=== PATIENT | male | born 1980 | race Caucasian/White ===

== ENCOUNTER → 2018-01-11 17:48 | Outpatient (CLI) | payer BC, OTHER, SELFPAY ==
--- NOTE | 2018-01-11 17:51 | DI.RAD.S_ITS ---
PROCEDURE: XR CERVICAL SPINE 4V OR 5V INDICATIONS: Neck pain with right UE paresthesias TECHNIQUE: 5 views of the cervical spine acquired. COMPARISON: None. FINDINGS: Bones: No fractures or dislocations to the T1 level. Oblique images demonstrate no bony foraminal stenoses. Minimal narrowing of the disc space at C5-6. Soft tissues: No prevertebral soft tissue swelling. IMPRESSION: Minimal narrowing of the intervertebral disc space at C5-6, no significant foraminal stenosis seen. Followup by MR scanning may be warranted to assess for disc bulge or herniation. Dictated by: Casimiro Ames M.D. on 01/12/2018 at 8:43 Approved by: Casimiro Ames M.D. on 01/12/2018 at 8:44
--- NOTE | 2018-01-11 17:51 | DI.MRI.S_ITS ---
PROCEDURE: MR CERVICAL SPINE WO CON INDICATIONS: Right C7 Radiculopathy TECHNIQUE: Noncontrast sagittal T1 spin echo and T2 fast spin echo, sagittal STIR, foraminal oblique sagittal T2 fast spin echo, and axial gradient echo or T2 fast spin echo through the cervical spine. COMPARISON: None. FINDINGS: Image quality: Excellent. Alignment and Curvature: There is normal bony alignment. Bone Marrow: Marrow demonstrates normal overall signal. Spinal Cord: Visualized spinal cord has normal size and signal. No cerebellar tonsillar herniation. Paraspinous Soft Tissues: No paravertebral masses. Prevertebral soft tissues are normal in thickness. C2-C3: Normal appearance. C3-C4: Loss of disc signal. Minimal, diffuse disc bulge. No central stenosis. Mild bilateral neural foraminal narrowing secondary to disc disease. No neural impingement. C4-C5: Loss of disc signal. Mild, diffuse disc bulge. Mild narrowing the central canal secondary disc disease. Mild bilateral neural foraminal narrowing secondary to disc disease. No neural impingement. C5-C6: Loss of disc signal and height. Large left central disc extrusion. Extruded disc material abuts and flattens the anterior left aspect of the cervical spinal cord. Severe narrowing of the central canal secondary to extruded disc material. Mild bilateral uncovertebral joint hypertrophy. Moderate bilateral neural foraminal narrowing secondary to disc disease and uncovertebral joint hypertrophy. C6-C7: Loss of disc signal. Mild, diffuse disc bulge. Mild central canal secondary to disc disease. Mild bilateral neural foraminal narrowing secondary to disc disease. No neural impingement. C7-T1: Normal appearance. IMPRESSION: 1. Multilevel degenerative disc disease. 2. C5-C6 bilateral uncovertebral joint hypertrophy. 3. Large left central C5-C6 disc extrusion. Extruded disc material impinges on the cervical spinal cord causing mild deformity. 4. Severe C5-C6 Central canal narrowing. Mild C4-C5 and C6-C7 central canal narrowing. 5. Moderate bilateral C5-C6 neural foraminal narrowing. Mild bilateral C4-C5 and C6-C7 neural foraminal narrowing. Dictated by: Ibeth Nick MD, PhD on 01/12/2018 at 15:31 Approved by: Ibeth Nick MD, PhD on 01/12/2018 at 15:50
== END ==
PROVIDERS: Family Provider Family Medicine; Visit Provider Physical Medicine & Rehabilitation
DX: M54.12 Radiculopathy, cervical region (principal); M50.122 Cervical disc disorder at C5-C6 level with radiculopathy; M48.02 Spinal stenosis, cervical region
CPT/HCPCS: 72050; 72141

== ENCOUNTER → 2018-06-10 20:09 | Outpatient (CLI) | payer BC, OTHER, SELFPAY ==
--- NOTE | 2018-06-10 20:12 | DI.MRI.S_ITS ---
PROCEDURE: MR HEAD/BRAIN WO CON INDICATIONS: headaches TECHNIQUE: Noncontrast axial T1 spin echo, axial T2 fast spin echo, sagittal and axial FLAIR, coronal T2 fast spin echo, axial gradient echo, axial diffusion and ADC through the brain. COMPARISON: None. FINDINGS: Image quality: Excellent. CSF Spaces: Basal cisterns are patent. No extra-axial fluid collections. Ventricles are normal in size and shape. Brain: No intracranial masses or hemorrhage. Groves/white matter interface is normal. Brainstem appears normal. Diffusion-weighted images demonstrate no acute ischemic insult. No chronic ischemic insults. Normal intravascular flow voids are present. Skull and face: Calvarium has normal marrow signal. Orbits appear normal. Sinuses: Sinuses and mastoids are clear. IMPRESSION: Source of headaches is not seen. No evidence of mass or prior trauma. No vascular malformation seen. Dictated by: Casimiro Ames M.D. on 06/11/2018 at 8:09 Approved by: Casimiro Ames M.D. on 06/11/2018 at 8:10
== END ==
PROVIDERS: Family Provider Family Medicine; PCP Family Medicine; Visit Provider Family Medicine
DX: R51 Headache (principal)
CPT/HCPCS: 70551

== ENCOUNTER → 2018-06-14 15:41 | Outpatient (CLI) | payer BC, OTHER, SELFPAY | PROVIDERS: PCP Family Medicine; Visit Provider Family Medicine | DX: R53.83 Other fatigue (principal) | CPT/HCPCS: 36415; 84443 ==

== ENCOUNTER 2018-07-21 08:16 | Outpatient (CLI) | payer BC, OTHER, SELFPAY ==
[2018-07-21] VITALS (10 sets, daily range): BP systolic 107–122; BP diastolic 56–82; PULSE 71–86; RESP 16–18; TEMP 36.5; O2SAT 97–100
--- NOTE | 2018-07-21 08:19 | DI.RAD.S_ITS ---
PROCEDURE: PAIN C/T INTERLAMINAR INJECT INDICATIONS: CERVICAL DISC DISPLACEMENT FINDINGS: Fluoroscopic spot filming was performed to verify placement of spinal needles at the C6-C7 level(s), as labeled on the films. Appropriate location(s) of the needle tip(s) was confirmed by injection of iodinated contrast. Dictated by: Justus Fuchs M.D. on 07/22/2018 at 13:53 Approved by: Justus Fuchs M.D. on 07/22/2018 at 13:56
[2018-07-21] MEDS: MIDAZOLAM 5 MG/5 ML VIAL IV (09:05)
[2018-07-21] MEDS: IOPAMIDOL 15 ML VIAL 3 ML INJ (09:10)
[2018-07-21] MEDS: LIDOCAINE 1% 20 ML INJ 5 ML INJ (09:10)
[2018-07-21] MEDS: DEXAMETHASONE 10 MG/ML VIAL 20 MG INJ (09:11)
--- NOTE | 2018-07-21 09:17 | PM.PROC.1 ---
Procedures Date/Time Date of procedure: 07/21/18 Time of procedure: 09:17 General Procedure description: PREOP DIAGNOSIS 1. CERVICAL STENOSIS, 2. CERVICAL HNP WITH UPPER EXTREMITY RADICULAR FEATURES, POST OP DIAGNOSIS 1. CERVICAL STENOSIS, 2. CERVICAL HNP WITH UPPER EXTREMITY RADICULAR FEATURES, PROCEDURES 1. FLUORSCOPICALLY GUIDED CONTRAST CONTROLLED INTERLAMINAR EPIDURAL STEROID INJECTION - C6/7 TL MARIMAR PHYSICIAN: Karan Montgomery, DO INDICATIONS Yann is referred by Dr. Campo for treatment of Cervical HNP with Upper Extremity Paresthesias. FINDINGS Cervical Stenosis due to disc deterioration and nerve root irritation and nerve root irritation DESCRIPTION OF PROCEDURE Fluoroscopically guided, contrast-controlled C6/7 translaminar epidural steroid injection with conscious sedation. Following denial of allergy and review of potential side effects and complications, including, but not necessarily limited to, infection, allergic reaction, local tissue breakdown, temporary as well as permanent nerve injury, stroke, paralysis, and possible , the patient indicated that patient understood and agreed to proceed. An informed consent document was signed by the patient, witnessed by a nurse, and placed in the patient's chart. Additionally, other treatment options including modalities, medications, and physical therapy were reviewed with the patient. After review of previous anaesthesic history and IV conscious sedation the patient was deemed safe to proceed with todays procedure with IV conscious sedation as ASA class II designation. Safety time-out was performed to confirm patient ID, procedure to be performed and site of procedure. IV sedation was accomplished with a combination of 5mg of Versed administered by the RN after DO order, titrated to patient comfort during the course of the procedure while the patient remained responsive to all verbal commands. In the prone position, following sterile prep and drape of the cervical region, the C6/7 translaminar space was identified fluoroscopically. The skin was anesthetized via a 25-gauge 1.5-inch needle with 1% lidocaine solution. At this point, a 25-gauge, 2.5-inch short bevel spinal needle was atraumatically introduced and advanced under fluoroscopic guidance into epidural space at the C6/7 translaminar space. Depth was confirmed on lateral view. Radiological data, including multiple fluoroscopic views of the cervical spine, reveal a spinal needle at the C6/7 translaminar space. Lateral views then show placement of the needle in the epidural space. Subsequent views show contrast material flowing superiorly and inferiorly in the epidural space. DSA fluoroscopy with live contrast injection, once again, confirmed no vascular or intrathecal uptake. At this point, using loss of resistance technique with saline and air, the epidural space was entered. Following negative aspiration, injection of approximately 1.5 cc of Isovue-200 with live fluoroscopy in the AP view confirmed epidural flow in the epidural space without vascular or intrathecal uptake observed. Subsequently, a test dose of 1 cc of 1% lidocaine solution was injected and patient was observed for two minutes without signs or symptoms of complications, including abdominal pain, shortness of breath, bilateral upper or lower extremity weakness, nausea and vomiting, prior to steroid injection. At this point, 3 cc or 30 mg of dexamethasone was then injected without incident. The patient tolerated the procedure well without signs or symptoms of complications prior to being transferred to the recovery area for further monitoring, The patient was then transferred to the recovery area where they were observed for an appropriate period of time after the injection. The patient reported a VAS score of 6 prior to the procedure and a post-procedure VAS of 0. Total Fluoroscopy Time: 37.0 seconds Total Conscious Time: 24min POST OP INSTRUCTIONS The patient was provided a Pain Log to continue to record their response to the target-specific procedure prior to follow-up visit with the referring provider. Additionally, specific post-injection care instructions and a contact number to our office were provided if concerns arise regarding possible complications associated with the procedure are suspected. Karan Montgomery, Complications: none
--- NOTE | 2018-07-21 09:23 | PC.NURSE ---
at approx 1915 assisted pt from proc table and transported to post proc area in stable condition.
--- NOTE | 2018-07-21 09:24 | PC.NURSE ---
Received pt from Jacqueline NELSON post procedure, pt awake and able to move from w/c to chair for resumed monitoring.
== END 2018-07-21 09:44 | disposition home or self-care (01) ==
PROVIDERS: PCP Family Medicine; Visit Provider Physical Medicine & Rehabilitation
DX: M48.02 Spinal stenosis, cervical region (principal); M50.123 Cervical disc disorder at C6-C7 level with radiculopathy; M50.223 Other cervical disc displacement at C6-C7 level
CPT/HCPCS: 62321; 99152; J1040; J1100; J2250

== ENCOUNTER → 2018-08-06 07:47 | Outpatient (CLI) | payer BC, OTHER, SELFPAY ==
--- NOTE | 2018-08-06 07:48 | DI.MRI.S_ITS ---
PROCEDURE: MR LUMBAR SPINE WO CON INDICATIONS: LOW BACK PAIN TECHNIQUE: Noncontrast sagittal T1 spin echo and T2 fast echo, sagittal STIR, axial T1 and T2 fast spin echo through the lumbar spine. In cases with scoliosis, additional coronal T2 fast spin echo may be performed. COMPARISON: None. FINDINGS: Image quality: Excellent. Alignment and Curvature: There is normal bony alignment. Bone Marrow: Marrow is of normal overall signal. No acute vertebral body compression fractures. Spinal Cord: Conus medullaris terminates at the L1 level. Visualized cord demonstrates normal signal and size. Paraspinous Soft Tissues: No paravertebral masses. L1-L2: Normal appearance. L2-L3: Normal appearance. L3-L4: Normal appearance. L4-L5: Mild broad-based disc bulge and bilateral facet arthrosis is seen. No significant central canal stenosis. Mild bilateral neuroforaminal narrowing is seen. L5-S1: There is diffuse disc bulge and bilateral facet arthrosis with no significant central canal stenosis or neuroforaminal narrowing. IMPRESSION: 1. Mild degenerative disc bulge and bilateral facet arthrosis at L4-5 and L5-S1 levels. No significant central canal stenosis. Mild bilateral neuroforaminal narrowing is noted at L4-5 level. 2. No marrow edema. No compression fracture or spondylolisthesis. Dictated by: Serge Jaimes M.D. on 08/06/2018 at 8:36 Approved by: Serge Jaimes M.D. on 08/06/2018 at 8:39
== END ==
PROVIDERS: PCP Family Medicine; Visit Provider Physical Medicine & Rehabilitation
DX: M54.5 Low back pain (principal); M51.36 Other intervertebral disc degeneration, lumbar region; M51.37 Other intervertebral disc degeneration, lumbosacral region; M48.061 Spinal stenosis, lumbar region without neurogenic claudication
CPT/HCPCS: 72148

== ENCOUNTER 2018-09-01 14:44 | Outpatient (CLI) | payer BC, OTHER, SELFPAY ==
[2018-09-01] VITALS (9 sets, daily range): BP systolic 95–138; BP diastolic 58–99; PULSE 67–88; RESP 16–18; TEMP 36.3; O2SAT 97–100
--- NOTE | 2018-09-01 14:46 | DI.RAD.S_ITS ---
PROCEDURE: PAIN L/SI FACET INJ/BLK 1STL INDICATIONS: 34516, [id number] Bilateral L4/5, L5/S1 facet joint injection FINDINGS: Fluoroscopic spot filming was performed to verify placement of spinal needles at the bilateral L4-5 and L5-S1 facet region levels level(s), as labeled on the films. Appropriate location(s) of the needle tip(s) was confirmed by injection of iodinated contrast. IMPRESSION: Bilateral needle tip localization for epidural steroid injection adjacent to the expected course of the bilateral L4 and bilateral L5 nerve roots. Dictated by: Casimiro Ames M.D. on 09/01/2018 at 16:19 Approved by: Casimiro Ames M.D. on 09/01/2018 at 16:20
[2018-09-01] MEDS: MIDAZOLAM 5 MG/5 ML VIAL IV (15:20)
[2018-09-01] MEDS: fentaNYL 100 MCG/2 ML INJ IV (15:24)
[2018-09-01] MEDS: BUPIVACAINE 0.5% (PF) VIAL 2 ML INJ (15:29)
[2018-09-01] MEDS: BETAMETHASONE 30 MG/5 ML MDV 12 MG INJ (15:30)
[2018-09-01] MEDS: LIDOCAINE 1% 20 ML INJ 10 ML INJ (15:30)
[2018-09-01] MEDS: IOPAMIDOL 15 ML VIAL 3 ML INJ (15:30)
--- NOTE | 2018-09-01 15:32 | PC.NURSE ---
ASSISTING PT OFF TABLE AND TRANSPORTING TO POST PROC AREA IN STABLE CONDITION
--- NOTE | 2018-09-01 15:37 | P.PCN_ITS ---
Procedures Date/Time Date of procedure: 09/01/18 Time of procedure: 15:36 General Procedure description: PREOP DIAGNOSIS 1. FACET ARTHROPATHY 2. AXIAL LBP 3. MULTILEVEL DDD POST OP DIAGNOSIS 1. FACET ARTHROPATHY 2. AXIAL LBP 3. MULTILEVEL DDD PROCEDURES 1. FLUORSCOPICALLY GUIDED CONTRAST CONTROLLED FACET JOINT INJECTIONS BILATERAL L4/5, L5/S1 PHYSICIAN: Karan Montgomery, DO INDICATIONS Yann is referred by Dr. Campo for treatment of Axial LBP FINDINGS Multilevel Facet Arthropathy with Clinically significant axial LBP DESCRIPTION OF PROCEDURE Fluoroscopically guided, contrast-controlled bilateral L4/5, L5/S1 facet joint injections. Following denial of allergy and review of potential side effects and complications, including, but not necessarily limited to, infection, allergic reaction, local tissue breakdown, stroke, temporary or permanent nerve injury, paralysis, and possible , the patient indicated that the patient understood and agreed to proceed. An informed consent document was signed by the patient, witnessed by a nurse, and placed in the patient's chart. Additionally, other treatment options including medications, modalities, and physical therapy were reviewed with the patient. After review of previous anaesthesic history and IV conscious sedation the patient was deemed safe to proceed with todays procedure with IV conscious sedation as ASA class II designation. Safety time-out was performed to confirm patient ID, procedure to be performed and site of procedure. IV sedation was accomplished with a combination of 2mg of Versed and 50mcg of Fentanyl was administered by the RN after DO order, titrated to patient comfort during the course of the procedure while the patient remained responsive to all verbal commands In the prone position, following sterile prep and drape of the lumbar region, the posterior aspect of the L4/5, L5/S1 facet joints were identified fluoroscopically. The skin was anesthetized via a 25-gauge 1.5-inch needle with 1% lidocaine solution into the corresponding facet joints. At this point, a 22-gauge 3.5-inch spinal needle was atraumatically introduced and advanced under fluoroscopic guidance into the corresponding facet joints. Following negative aspiration, injections of approximately 0.2-cc of Isovue 200 confirmed interarticular placement without vascular uptake. The identical procedure was then performed at the L4/5, L5/S1 facet joints on the left. Radiological data, including multiple fluoroscopic views of the lumbosacral spine, reveal a spinal needle at the L4/5, L5/S1 facet joints bilaterally. Subsequent views show flow of contrast material both superiorly and inferiorly within the joint space without vascular or intrathecal uptake. At this point, a total of 0.5 cc including a mixture of 0.25cc Marcaine and 0.25cc betamethasone was injected without complication into each of the corresponding facet joints. The patient tolerated the procedure well without signs or symptoms of complications prior to transfer to the recovery area continued monitoring without incident. The patient was then transferred to the recovery area where they were observed for an appropriate period of time after the injection. The patient reported a VAS score of 7 prior to the procedure and a post- procedure VAS of 0. Total Fluoroscopy Time: 20.3 seconds Total Conscious Sedation Time: 24min POST OP INSTRUCTIONS The patient was provided a Pain Log to continue to record their response to the target-specific procedure prior to follow-up visit with their referring physician. Additionally, specific post-injection care instructions and a contact number to our office were provided if concerns arise regarding possible complications associated with the procedure are suspected. Karan Montgomery DO Complications: none
--- NOTE | 2018-09-01 16:05 | PC.NURSE ---
pt returned from procedure awake and alert, able to move from w/c to chair on own power with standby assist. Resumed monitoring from Jacqueline NELSON.
== END 2018-09-01 16:04 ==
LOC: RAD 14:45
PROVIDERS: PCP Family Medicine; Visit Provider Physical Medicine & Rehabilitation
DX: M47.817 Spondylosis without myelopathy or radiculopathy, lumbosacral region (principal); M47.816 Spondylosis without myelopathy or radiculopathy, lumbar region; M54.5 Low back pain; M51.36 Other intervertebral disc degeneration, lumbar region; M51.37 Other intervertebral disc degeneration, lumbosacral region
CPT/HCPCS: 64493; 64494; 99152; J0702; J2250; J3010

== ENCOUNTER 2018-10-05 14:46 | Outpatient (CLI) | payer BC, OTHER, SELFPAY ==
[2018-10-05] VITALS (8 sets, daily range): BP systolic 120–132; BP diastolic 72–98; PULSE 72–86; RESP 16–20; TEMP 36.7; O2SAT 96–100
--- NOTE | 2018-10-05 14:48 | DI.RAD.S_ITS ---
PROCEDURE: PAIN L/SI FACET INJ/BLK 1STL INDICATIONS: SPONDYLOSIS FINDINGS: Fluoroscopic spot filming was performed to verify placement of spinal needles at the L4, L5 and S1 level(s), as labeled on the films. Appropriate location(s) of the needle tip(s) was confirmed by injection of iodinated contrast. IMPRESSION: Fluoroscopy for pain management. Dictated by: Capri Lozoya M.D. on 10/06/2018 at 7:47 Approved by: Capri Lozoya M.D. on 10/06/2018 at 7:48
[2018-10-05] MEDS: MIDAZOLAM 5 MG/5 ML VIAL IV (15:21)
[2018-10-05] MEDS: fentaNYL 100 MCG/2 ML INJ IV (15:21)
[2018-10-05] MEDS: IOPAMIDOL 15 ML VIAL 3 ML INJ (15:28)
[2018-10-05] MEDS: BETAMETHASONE 30 MG/5 ML MDV 12 MG INJ (15:29)
[2018-10-05] MEDS: BUPIVACAINE 0.5% (PF) VIAL 2 ML INJ (15:29)
--- NOTE | 2018-10-05 15:31 | PC.NURSE ---
ASSISTING PT OFF TABLE AND TRANSPORTING TO POST PROC AREA IN STABLE CONDITION
--- NOTE | 2018-10-05 15:40 | PM.PROC.1 ---
Procedures Date/Time Date of procedure: 10/05/18 Time of procedure: 15:40 General Procedure description: POST OP DIAGNOSIS 1. FACET ARTHROPATHY PROCEDURES 1. Right L4, L5 and S1 MB BLOCKS PHYSICIAN: Karan Montgomery DO YASMEEN Lerner is referred by Dr. García for treatment of Right Axial LBP. DESCRIPTION OF PROCEDURE Fluoroscopically guided, contrast-controlled right L4, L5 and S1 medial branch blocks with 0.5cc of 0.5% Marcaine. Following denial of allergy and review of potential side effects and complications, including, but not necessarily limited to, infection, allergic reaction, local tissue breakdown, nerve injury, paralysis, stroke and possible , the patient indicated that the patient understood and agreed to proceed. An informed consent document was signed by the patient, witnessed by a nurse, and placed in the patient's chart. After review of previous anaesthesic history and IV conscious sedation the patient was deemed safe to proceed with todays procedure with IV conscious sedation as ASA class II designation. Safety time-out was performed to confirm patient ID, procedure to be performed and site of procedure. IV sedation was accomplished with a combination of 4mg of Versed and 50mcg of Fentanyl was administered by the RN after DO order, titrated to patient comfort during the course of the procedure while the patient remained responsive to all verbal commands In the prone position, following sterile prep and drape of the lumbar region, the right L4, L5 and S1 anatomical location of the medial branch of the dorsal ramus was identified fluoroscopically. Subsequently an anesthetic skin wheal using 1% lidocaine solution was initiated at each of the anatomical spots. Subsequently then a 22-gauge 3.5-inch spinal needle was atraumatically introduced and advanced under fluoroscopic guidance at each of the corresponding sites at the right L4, L5 and S1 MB. After negative aspiration, 0.2 cc of Isovue 200 was injected, confirming placement without vascular or intrathecal uptake. Subsequently then 0.5 cc of 0.5% Marcaine solution was injected at each of the corresponding sites at the right L4, L5 and S1 medial branch locations. The patient tolerated the procedure well without signs or symptoms of complications. The procedure tolerated the procedure well without signs or symptoms of complications prior to transfer to the recovery area continued monitoring without incident. Post-procedure, the patient was monitored initiating provocative activities to measure the amount of relief from block of the facetogenic pain. The patient reported a VAS of 7 prior to the procedure and a post-procedure VAS of 1. It has been a pleasure to assist in the diagnostic and therapeutic care of your patient. Total Fluoroscopy Time: 24.8 seconds Total Conscious Sedation Time: 24min POST OP INSTRUCTIONS The patient was provided with a Pain Log to complete over the next several hours and subsequent days prior to the patient's follow up with the ordering physician. If the patient has ore crushing dust collector relief to the solution applied, then they may be a candidate for medial branch rhizotomy. The patient is aware, was provided, once again, with a Pain Log and will follow up with the referring physician for review and clinical correlation Karan Montgomery DO Complications: none
--- NOTE | 2018-10-05 15:55 | PC.NURSE ---
pt returned from procedure at 1536 via wheelchair, pt awake and alert. Able to move from w/c to chair without difficulty. Resumed monitoring from Jacqueline NELSON.
--- NOTE | 2018-10-06 12:32 | PC.NURSE ---
FOLLOW UP CALL MADE, LEFT MSG WITH CLINIC NUMBER IN CASE OF QUESTIONS/CONCERNS.
== END 2018-10-05 16:02 ==
LOC: RAD 14:47
PROVIDERS: PCP Family Medicine; Visit Provider Physical Medicine & Rehabilitation
DX: M47.816 Spondylosis without myelopathy or radiculopathy, lumbar region (principal); M47.817 Spondylosis without myelopathy or radiculopathy, lumbosacral region
CPT/HCPCS: 64493; 64494; 99152; J0702; J2250; J3010

== ENCOUNTER → 2021-03-12 08:16 | Outpatient (CLI) | payer BC, OTHER, SELFPAY ==
[2021-03-12 12:27] LABS: COVID19 -Nasal RAPID Negative (Negative)
== END ==
PROVIDERS: PCP Family Medicine; Visit Provider Physical Medicine & Rehabilitation
DX: Z20.822 Contact with and (suspected) exposure to COVID-19 (principal)
CPT/HCPCS: 87635

== ENCOUNTER 2021-03-12 14:08 | Outpatient (CLI) | payer BC, OTHER, SELFPAY ==
[2021-03-12] VITALS (9 sets, daily range): BP systolic 110–148; BP diastolic 68–91; PULSE 70–85; RESP 12–20; TEMP 36.4; O2SAT 97–100
--- NOTE | 2021-03-12 14:10 | DI.RAD.S_ITS ---
PROCEDURE: PAIN L/S FACET INJ/BLK 1ST PHILLIP COMPARISON: [facility], , PAIN L/SI FACET INJ/BLK 1STL, 10/05/2018, 15:26. INDICATIONS: SPONDYLOSIS FINDINGS: Fluoroscopic spot filming was performed to verify placement of a spinal needles at the L4, L5, and S1 levels on both sides, as labeled on the films. Appropriate location of the needle tips was confirmed by injection of iodinated contrast. IMPRESSION: Intraprocedural examination within normal limits. Dictated by: Neal Hennessy M.D. on 03/12/2021 at 15:28 Approved by: Neal Hennessy M.D. on 03/12/2021 at 15:28
[2021-03-12] MEDS: MIDAZOLAM 5 MG/5 ML VIAL IV (14:39)
[2021-03-12] MEDS: fentaNYL 100 MCG/2 ML INJ 50 MCG IV (14:39)
[2021-03-12] MEDS: IOPAMIDOL 15 ML VIAL 3 ML INJ (14:45)
[2021-03-12] MEDS: BUPIVACAINE 0.5% (PF) VIAL 5 ML INJ (14:45)
[2021-03-12] MEDS: LIDOCAINE 1% 20 ML 10 ML INJ (14:45)
--- NOTE | 2021-03-12 14:56 | PM.PROC.IR.1 ---
Date/Time/Diagnoses Date of procedure: 03/12/21 Time of procedure: 14:56 Pre-procedure diagnosis: 1. FACET ARTHROPATHY Post-procedure diagnosis: same Procedure Notes Procedure: 1. BILATERAL- L4, L5 and S1 DIAGNOSTIC MB BLOCKS with LA Anesthetic Indications: Yann is referred by Dr. Campo for treatment of Bilateral Axial LBP. Physician: Karan Montgomery Total Fluoroscopy time (seconds): 14 Total sedation minutes: 12 Complications: none Procedure in detail & Post-procedure care: DESCRIPTION OF PROCEDURE Fluoroscopically guided, contrast-controlled bilateral L4, L5 and S1 medial branch blocks with 0.5cc of 0.5% Marcaine. Following review of allergy and review of potential side effects and complications, including, but not necessarily limited to, infection, allergic reaction, local tissue breakdown, nerve injury, paralysis, stroke and possible , the patient indicated that the patient understood and agreed to proceed. An informed consent document was signed by the patient, witnessed by a nurse, and placed in the patient's chart. After review of previous anaesthesic history and IV conscious sedation the patient was deemed safe to proceed with today's procedure with IV conscious sedation as ASA class II designation. Safety time-out was performed to confirm patient ID, procedure to be performed and site of procedure. IV sedation was accomplished with a combination of 4mg of Versed and 50mcg of Fentanyl was administered by the RN after DO order, titrated to patient comfort during the course of the procedure while the patient remained responsive to all verbal commands In the prone position, following sterile prep and drape of the lumbar region, the right L4, L5 and S1 anatomical location of the medial branch of the dorsal ramus was identified fluoroscopically. Subsequently an anesthetic skin wheal using 1% lidocaine solution was initiated at each of the anatomical spots. Subsequently then a 22-gauge 3.5-inch spinal needle was atraumatically introduced and advanced under fluoroscopic guidance at each of the corresponding sites at the right L4, L5 and S1 MB. After negative aspiration, 0.2cc of Isovue 200 was injected, confirming placement without vascular or intrathecal uptake. Subsequently then 0.5cc of 0.5% Marcaine solution was injected at each of the corresponding sites at the right L4, L5 and S1 medial branch locations. The identical procedure was replicated on the left. The patient tolerated the procedure well without signs or symptoms of complications prior to transfer to the recovery area continued monitoring without incident. Post-procedure, the patient was monitored initiating provocative activities to measure the amount of relief from block of the facetogenic pain. The patient reported a VAS of 7 prior to the procedure and a post-procedure VAS of 1. It has been a pleasure to assist in the diagnostic and therapeutic care of your patient. POST OP INSTRUCTIONS The patient was provided with a Pain Log to complete over the next several hours and subsequent days prior to the patient's follow up with the ordering physician. If the patient has wet press tender relief to the solution applied, then they may be a candidate for medial branch rhizotomy. The patient is aware, was provided, once again, with a Pain Log and will follow up with the referring physician for review and clinical correlation
== END 2021-03-12 15:20 | disposition home or self-care (01) ==
LOC: RAD 14:10
PROVIDERS: PCP Family Medicine; Referring Provider Physical Medicine & Rehabilitation; Visit Provider Physical Medicine & Rehabilitation
DX: M47.816 Spondylosis without myelopathy or radiculopathy, lumbar region (principal); M47.817 Spondylosis without myelopathy or radiculopathy, lumbosacral region; M54.5 Low back pain; Z20.822 Contact with and (suspected) exposure to COVID-19
CPT/HCPCS: 64493; 64494; 87635; 99152; C9803; J2250; J3010

== ENCOUNTER → 2022-04-21 14:31 | Outpatient (CLI) | payer BC, OTHER, SELFPAY ==
--- NOTE | 2022-04-21 14:33 | DI.RAD.S_ITS ---
PROCEDURE: XR CERVICAL SPINE 4V OR 5V INDICATIONS: NECK AND SHOULDER PAIN TECHNIQUE: 5 views of the cervical spine were acquired. COMPARISON: [facility], CR, XR CERVICAL SPINE 4V OR 5V, 01/11/2018, 17:52. FINDINGS: Bones: No fractures or dislocations to the T1 level. No suspicious bony lesions. Loss of lordosis which could be related to muscle spasm, rigidity or simply positional. Mild disc height loss with endplate sclerosis at the C5-C6, C6-C7 and C7-T1 levels. Mild multilevel mid and lower cervical spine facet joint arthropathy and uncovertebral hypertrophy. Oblique views demonstrate mild neural foraminal narrowing on the right at the C5-C6 and C6-C7 levels and on the left at the C4-C5, C5-C6 and C6-C7 levels. There is normal range of motion between flexion and extension, with preserved normal bony alignment. Soft tissues: Prevertebral soft tissues are normal in thickness. IMPRESSION: Loss of lordosis and multilevel cervical spine spondylosis. Dictated by: [facility] Interpreted: José Miguel Baron MD on 04/21/2022 at 16:15 Transcribed by: PANKAJ on 04/21/2022 at 16:18 Approved by: José Miguel Baron M.D. on 04/21/2022 at 22:55
--- NOTE | 2022-04-21 14:33 | DI.RAD.S_ITS ---
PROCEDURE: XR SHOULDER LT MIN 2V INDICATIONS: LEFT SHOULDER PAIN TECHNIQUE: 3 views of the shoulder were acquired. COMPARISON: None. FINDINGS: Bones: No fractures or dislocations. No suspicious bony lesions. Visualized ribs appear intact. Moderate acromioclavicular mild glenohumeral joint space narrowing with periarticular osteophyte formation. Soft tissues: No suspicious soft tissue calcifications. IMPRESSION: Moderate acromioclavicular mild glenohumeral joint degeneration. Dictated by: Ezra Concepcion [facility] Interpreted: José Miguel Baron MD on 04/21/2022 at 16:11 Transcribed by: PANKAJ on 04/21/2022 at 16:11 Approved by: José Miguel Baron M.D. on 04/21/2022 at 22:54
--- NOTE | 2022-04-21 14:33 | DI.RAD.S_ITS ---
PROCEDURE: XR LUMBAR SPINE MIN 4V INDICATIONS: BACK PAIN TECHNIQUE: 5 views of the lumbar spine acquired, including flexion and extension views. COMPARISON: None. FINDINGS: Bones: 5 nonrib-bearing vertebrae are present. 2 mm retrolisthesis L2-L3, L3-L4 and L4-L5.. No vertebral body compression fractures. No suspicious bony lesions. Mild disc height loss at the L5-S1 level. Possible pars defects at L5-S1. Soft tissues: Overlying bowel gas pattern is normal. No suspicious soft tissue calcifications. IMPRESSION: Multilevel grade 1 retrolisthesis and mild disc degeneration at the L5-S1 level. Dictated by: [facility]ce[facility] Interpreted: José Miguel Baron MD on 04/21/2022 at 16:18 Transcribed by: PANKAJ on 04/21/2022 at 16:19 Approved by: José Miguel Baron M.D. on 04/21/2022 at 22:57
== END ==
PROVIDERS: PCP Family Medicine; Referring Provider Physical Medicine & Rehabilitation; Visit Provider Physical Medicine & Rehabilitation
DX: M25.512 Pain in left shoulder (principal); M47.816 Spondylosis without myelopathy or radiculopathy, lumbar region; M50.223 Other cervical disc displacement at C6-C7 level; M25.519 Pain in unspecified shoulder; M43.17 Spondylolisthesis, lumbosacral region; M51.37 Other intervertebral disc degeneration, lumbosacral region; M47.812 Spondylosis without myelopathy or radiculopathy, cervical region
CPT/HCPCS: 72050; 72110; 73030

== ENCOUNTER → 2022-05-27 08:18 | Outpatient (CLI) | payer BC, OTHER, SELFPAY ==
--- NOTE | 2022-05-27 08:18 | DI.MRI.S_ITS ---
PROCEDURE: MR SHOULDER LT WO CON INDICATIONS: Left shoulder impingement TECHNIQUE: Noncontrast oblique coronal T2 fast spin echo with fat saturation, oblique sagittal T1 spin echo and T2 fast spin echo with fat saturation, axial T1 spin echo and T2 fast spin echo with fat saturation through the shoulder. COMPARISON: [facility], CR, XR SHOULDER LT MIN 2V, 04/21/2022, 14:55. FINDINGS: Image quality: Excellent. Rotator cuff: There is mild tendinosis and bursal surface fraying of the supraspinatus tendon distally. The infraspinatus and teres minor tendons are intact. The subscapularis tendon is intact. There is no significant rotator cuff muscle atrophy. Bones and bursae: A circumscribed [id number] lesion is seen within the proximal humeral metaphysis without surrounding edema, most likely a benign enchondroma. An additional smaller enchondroma is seen more posteriorly. No acute trabecular bone injury or fracture. No significant glenohumeral degenerative changes. Mild to moderate degenerative changes are seen at the acromioclavicular joint with mild subchondral edema. There is trace fluid in the subacromial/subdeltoid bursa. No significant glenohumeral effusion is seen. Capsule and soft tissues: No displaced labral tear. The proximal biceps long head tendon is intact. There is mild partial effacement of the fat signal in the rotator interval. The anterior band of the inferior glenohumeral ligament appears thickened. IMPRESSION: 1. Mild supraspinatus tendinosis and low-grade bursal surface fraying. No significant rotator cuff tendon tear. 2. Mild to moderate acromioclavicular joint osteoarthrosis. 3. 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 4. Partial effacement of the rotator interval fat and thickening of the inferior glenohumeral ligament are nonspecific, but can be seen in the setting of the clinical syndrome of adhesive capsulitis. Approved by: José Miguel Lovell M.D. on 05/27/2022 at 13:29
== END ==
PROVIDERS: PCP Family Medicine; Referring Provider Physical Medicine & Rehabilitation; Visit Provider Physical Medicine & Rehabilitation
DX: M19.012 Primary osteoarthritis, left shoulder (principal); M75.42 Impingement syndrome of left shoulder; M89.9 Disorder of bone, unspecified
CPT/HCPCS: 73221

== ENCOUNTER → 2022-07-01 10:26 | Outpatient (CLI) | payer BC, OTHER, SELFPAY ==
--- NOTE | 2022-07-01 10:28 | DI.RAD.S_ITS ---
PROCEDURE: XR SHOULDER RT MIN 2V INDICATIONS: Right AC joint djd TECHNIQUE: 3 views of the shoulder were acquired. COMPARISON: [facility], CR, XR SHOULDER LT MIN 2V, 04/21/2022, 14:55. FINDINGS: Bones: No fractures or dislocations. No suspicious bony lesions. Visualized ribs appear intact. Soft tissues: No suspicious soft tissue calcifications. IMPRESSION: No definite radiographic abnormality. If pain persists with conservative management consider cross-sectional imaging with MRI or CT. Dictated by: Kyle Man M.D. on 07/01/2022 at 11:25 Approved by: Kyle Man M.D. on 07/01/2022 at 11:25
== END ==
PROVIDERS: PCP Family Medicine; Referring Provider Physical Medicine & Rehabilitation; Visit Provider Physical Medicine & Rehabilitation
DX: M75.41 Impingement syndrome of right shoulder (principal); M19.019 Primary osteoarthritis, unspecified shoulder
CPT/HCPCS: 73030

== ENCOUNTER → 2022-07-15 17:13 | Outpatient (CLI) | payer BC, OTHER, SELFPAY ==
--- NOTE | 2022-07-15 17:15 | DI.MRI.S_ITS ---
PROCEDURE: MR SHOULDER RT WO CON INDICATIONS: Right AC joint djd TECHNIQUE: Noncontrast oblique coronal T2 fast spin echo with fat saturation, oblique sagittal T1 spin echo and T2 fast spin echo with fat saturation, axial T1 spin echo and T2 fast spin echo with fat saturation through the shoulder. COMPARISON: [facility], MR, MR SHOULDER LT WO CON, 05/27/2022, 8:25. FINDINGS: Image quality: Excellent. Rotator cuff: There is low-grade bursal surface partial thickness tear involving distal supraspinatus near its insertion on the humeral head extending to musculotendinous junction. Distal infraspinatus tendon is intact. Distal subscapularis tendon is intact. No full-thickness rotator cuff tendon rupture. Sagittal images demonstrate no significant muscle atrophy. Bones and bursae: No bone marrow contusions or fractures. Mild to moderate acromioclavicular joint osteoarthritic changes are seen with joint space narrowing, subchondral sclerosis and downward osteophyte formation depressing the musculotendinous junction of supraspinatus. Small amount of subacromial subdeltoid bursal fluid is seen. Capsule and soft tissues: There is signal abnormality and contour irregularity involving superior anterior labrum at 1 to 2 o'clock position concerning for superior anterior labral tear. Similar signal abnormality involving anterior inferior labrum at 5 to 6 o'clock position is also seen. The long head of the biceps tendon appears thickened intra-articularly. The rotator interval appears normal, without fibrosis. The coracohumeral ligament is normal in thickness. IMPRESSION: 1. Mild to moderate acromioclavicular joint osteoarthritis. No fracture or dislocation. Small amount of subacromial subdeltoid bursal fluid. 2. Low-grade bursal surface partial thickness tear involving distal supraspinatus extending to musculotendinous junction. No full-thickness rotator cuff tendon rupture. 3. Suggestion of subtle superior anterior labral tear at 1 to 2 o'clock position and anterior-inferior labral tear at 5 to 6 o'clock position. 4. Proximal intra-articular portion of long head of biceps tendinosis. Dictated by: Serge Jaimes M.D. on 07/16/2022 at 9:40 Approved by: Serge Jaimes M.D. on 07/16/2022 at 9:43
== END ==
PROVIDERS: PCP Family Medicine; Referring Provider Physical Medicine & Rehabilitation; Visit Provider Physical Medicine & Rehabilitation
DX: M19.011 Primary osteoarthritis, right shoulder (principal); M75.111 Incomplete rotator cuff tear or rupture of right shoulder, not specified as traumatic
CPT/HCPCS: 73221

== ENCOUNTER → 2022-11-14 08:30 | Outpatient (CLI) | payer BC, OTHER, SELFPAY ==
[2022-11-14 10:06] LABS: Add Manual Diff / Slide Review NO; Basophils Absolute Auto 0 /uL (0-100); Basophils Percent Auto 0.7 % (0-2); Eosinophils Absolute Auto 100 /uL (0-450); Eosinophils Percent Auto 1.9 % (2-4); Hematocrit 42.1 % (41-53); Hemoglobin 14.2 g/dL (13.5-17.5); Lymphocytes Absolute Auto 1000 /uL (1100-4500); Lymphocytes Percent Auto 22.1 % (25-40); Mean Corpuscular HGB Conc 33.8 % (30-36); Mean Corpuscular Hemoglobin 30.3 PG (26-34); Mean Corpuscular Volume 89.7 fL (80-100); Monocytes Absolute Auto 500 /uL (0-900); Monocytes Percent Auto 10.8 % (3-14); Neutrophils Absolute Auto 2900 /uL (1500-7000); Neutrophils Percent Auto 64.5 % (50-75); Platelet Count 333 X10^3/uL (150-400); Red Cell Distribution Width 13.1 % (11.6-14.8); White Blood Cell Count 4.5 X10^3/uL (4.5-11.0)
[2022-11-14 10:33] LABS: Alanine Aminotransferase 23 IU/L (<50); Albumin 4.1 g/dL (3.5-5.0); Albumin Globulin Ratio 1.6 (1.0-2.8); Alkaline Phosphatase 64 U/L (38-126); Aspartate Aminotransferase 23 IU/L (17-59); BUN Creatinine Ratio 6.8 (6-22); Bilirubin Total 0.6 mg/dL (0.2-1.3); Blood Urea Nitrogen 5 mg/dL (9-20); Carbon Dioxide 28 mmol/L (22-32); Chloride 106 mmol/L (98-107); Estimated Glomerular Filt Rate > 60 mL/min (>60); Globulin 2.6 g/dL (1.7-4.1); Glucose 82 mg/dL (70-100); HEMOLYSIS < 15 (0-50); Potassium 4.1 mmol/L (3.4-5.1); Sodium 140 mmol/L (137-145); Total Protein 6.7 g/dL (6.3-8.2)
[2022-11-15 10:19] LABS: Labcorp Hemoglobin (Hb) A1c 5.3 % (4.8-5.6)
== END ==
PROVIDERS: PCP Family Medicine; Referring Provider Family Medicine; Visit Provider Family Medicine
DX: R10.9 Unspecified abdominal pain (principal); F90.9 Attention-deficit hyperactivity disorder, unspecified type; G44.89 Other headache syndrome; F90.0 Attention-deficit hyperactivity disorder, predominantly inattentive type; J18.9 Pneumonia, unspecified organism; R10.13 Epigastric pain; N45.1 Epididymitis; R42 Dizziness and giddiness; K81.9 Cholecystitis, unspecified; R41.0 Disorientation, unspecified; E55.9 Vitamin D deficiency, unspecified; R53.83 Other fatigue; F41.1 Generalized anxiety disorder; K90.41 Non-celiac gluten sensitivity; R61 Generalized hyperhidrosis; E29.1 Testicular hypofunction; L64.8 Other androgenic alopecia; F34.9 Persistent mood [affective] disorder, unspecified; M70.21 Olecranon bursitis, right elbow
CPT/HCPCS: 36415; 80053; 83036; 84443; 85025

== ENCOUNTER → 2023-02-12 09:32 | Outpatient (CLI) | payer BC, OTHER, SELFPAY ==
[2023-02-12 10:14] LABS: Add Manual Diff / Slide Review NO; Basophils Absolute Auto 0 /uL (0-100); Eosinophils Absolute Auto 100 /uL (0-450); Eosinophils Percent Auto 2.5 % (2-4); Hematocrit 42.5 % (41-53); Hemoglobin 14.5 g/dL (13.5-17.5); Lymphocytes Absolute Auto 1400 /uL (1100-4500); Lymphocytes Percent Auto 34.4 % (25-40); Mean Corpuscular HGB Conc 34.2 % (30-36); Mean Corpuscular Hemoglobin 29.8 PG (26-34); Mean Corpuscular Volume 87.1 fL (80-100); Monocytes Absolute Auto 400 /uL (0-900); Monocytes Percent Auto 9.7 % (3-14); Neutrophils Absolute Auto 2100 /uL (1500-7000); Neutrophils Percent Auto 52.4 % (50-75); Platelet Count 309 X10^3/uL (150-400); Red Blood Cell Count 4.87 X10^6/uL (4.5-5.9); Red Cell Distribution Width 12.9 % (11.6-14.8); White Blood Cell Count 3.9 X10^3/uL (4.5-11.0)
[2023-02-12 10:31] LABS: Erythrocyte Sedimentation Rate 1 MM/HR (0-15)
[2023-02-12 10:46] LABS: Alanine Aminotransferase 34 IU/L (<50); Albumin 4.3 g/dL (3.5-5.0); Albumin Globulin Ratio 1.5 (1.0-2.8); Alkaline Phosphatase 81 U/L (38-126); Aspartate Aminotransferase 29 IU/L (17-59); BUN Creatinine Ratio 14.5 (6-22); Bilirubin Total 0.8 mg/dL (0.2-1.3); Blood Urea Nitrogen 11 mg/dL (9-20); Calcium 9.2 mg/dL (8.4-10.2); Carbon Dioxide 26 mmol/L (22-32); Chloride 106 mmol/L (98-107); Cholesterol 203 mg/dL (140-199); Estimated Glomerular Filt Rate > 60 mL/min (>60); Globulin 2.8 g/dL (1.7-4.1); Glucose 89 mg/dL (70-100); HDL Cholesterol 59 mg/dL (40-60); HEMOLYSIS < 15 (0-50); LDL Cholesterol Calculated 125 mg/dL (<100); Potassium 4.1 mmol/L (3.4-5.1); Sodium 140 mmol/L (137-145); Total Protein 7.1 g/dL (6.3-8.2); Triglycerides 95 mg/dL (35-150)
[2023-02-12 11:10] LABS: Thyroid Stimulating Hormone 0.655 uIU/mL (0.47-4.68)
[2023-02-13 19:37] LABS: High Sensitivity CRP - Cardiac < 0.3 mg/L (1.0-3.0)
[2023-02-20 09:50] LABS: Testosterone Total 350.1 ng/dL (264.0-916.0)
== END ==
PROVIDERS: PCP Family Medicine; Referring Provider Naturopath; Visit Provider Naturopath
DX: R53.83 Other fatigue (principal); E29.1 Testicular hypofunction; M54.50 Low back pain, unspecified; F34.1 Dysthymic disorder
CPT/HCPCS: 36415; 80053; 80061; 82627; 84270; 84402; 84403; 84443; 85025; 85651; 86140

== ENCOUNTER → 2023-03-02 07:34 | Outpatient (CLI) | payer BC, OTHER, SELFPAY ==
--- NOTE | 2023-03-02 07:36 | DI.RAD.S_ITS ---
PROCEDURE: XR TOE RT MIN 2V INDICATIONS: 3rd toe injury TECHNIQUE: 3 views of the 3rd toe(s) acquired. COMPARISON: None. FINDINGS: Bones: Mildly displaced fracture through the proximal metadiaphysis of the 3rd proximal phalanx. Soft tissues: No suspicious soft tissue densities. IMPRESSION: 3rd proximal phalanx fracture. Dictated by: Robinson Grossman M.D. on 03/02/2023 at 9:11 Approved by: Robinson Grossman M.D. on 03/02/2023 at 9:12
== END ==
PROVIDERS: PCP Family Medicine; Referring Provider Nurse Practitioner Family; Visit Provider Nurse Practitioner Family
DX: S92.511A Displaced fracture of proximal phalanx of right lesser toe(s), initial encounter for closed fracture (principal); X58.XXXA Exposure to other specified factors, initial encounter
CPT/HCPCS: 73660